=== PATIENT | female | born 1960 | race Caucasian/White ===

== ENCOUNTER 2019-02-11 09:00 | Outpatient (CLI) | payer MEDICARE ==
--- NOTE | 2019-02-11 19:23 | XRAY Report ---
Reason: ARTHRITIS BILATERAL HANDS Procedure Date: 02/11/2019 Accession Number: [id number] / [id number] Procedure: WCP - Hand 2 View BILAT CPT Code: FULL RESULT: EXAMS: 1. RIGHT HAND RADIOGRAPHY. 2. LEFT HAND RADIOGRAPHY. EXAM DATE: 02/11/2019 01:28 PM. CLINICAL HISTORY: Chronic bilateral hand pain. Right worse than left. COMPARISON: None. TECHNIQUE: 2 views each hand. FINDINGS: Right: Bones: Normal. No fractures or bone lesions. Joints: Mild triscaphe joint as well as 1st CMC joint degenerative joint disease. There is moderate 1st MCP joint degenerative joint disease. Soft Tissues: Chondrocalcinosis of the triangular fibrocartilage. No soft tissue swelling. Left: Bones: Normal. No fractures or bone lesions. Joints: Moderate triscaphe joint as well as mild to moderate 1st CMC degenerative joint disease. Mild PIP joint degenerative joint disease within the fingers. Mild to moderate 1st MCP degenerative joint disease. Mild 3rd finger DIP joint degenerative joint disease. Soft Tissues: Normal. No soft tissue swelling. IMPRESSION: 1. No acute bone abnormality. 2. No findings to indicate inflammatory arthropathy. 3. Right-sided triangular fibrocartilage chondrocalcinosis. RADIA
== END 2019-02-11 23:59 | disposition home or self-care (01) ==
LOC: DI.WCP 09:00 → EDSTATUS 13:38 → DI.WCP 23:59
PROVIDERS: ATTEND Family Medicine
DX: M19.041 Primary osteoarthritis, right hand (principal); M19.042 Primary osteoarthritis, left hand; M18.0 Bilateral primary osteoarthritis of first carpometacarpal joints; M11.241 Other chondrocalcinosis, right hand

== ENCOUNTER 2020-12-13 07:38 | Outpatient (CLI) | payer OTHER, MEDICARE ==
[2020-12-13 12:33] LABS: BASOPHILS # (AUTO) 0.1 10^3/uL (0.0-0.1); BASOPHILS % (AUTO) 1.3 %; EOSINOPHILS # (AUTO) 0.2 10^3/uL (0.0-0.7); EOSINOPHILS % (AUTO) 3.5 %; HCT - HEMATOCRIT 39.5 % (37.0-47.0); LYMPHOCYTES # (AUTO) 1.6 10^3/uL (1.5-3.5); LYMPHOCYTES % (AUTO) 34.7 %; MEAN CORPUSCULAR HEMOGLOBIN 27.6 pg (27.0-31.0); MEAN CORPUSCULAR HGB CONC 30.4 g/dL (32.0-36.0); MEAN CORPUSCULAR VOLUME 90.8 fL (81.0-99.0); MEAN PLATELET VOLUME 11.7 fL (7.9-10.8); MONOCYTES # (AUTO) 0.5 10^3/uL (0.0-1.0); MONOCYTES % (AUTO) 10.8 %; NEUTROPHILS # (AUTO) 2.3 10^3/uL (1.5-6.6); NEUTROPHILS % (AUTO) 49.5 %; PLT - PLATELET COUNT 261 10^3/uL (130-450); RED BLOOD COUNT 4.35 10^6/uL (4.20-5.40); RED CELL DISTRIBUTION WIDTH 14.9 % (12.0-15.0); WHITE BLOOD COUNT 4.6 x10^3/uL (4.8-10.8)
[2020-12-13 12:47] LABS: ALBUMIN 4.2 g/dL (3.2-5.5); ALBUMIN/GLOBULIN RATIO 1.4 (1.0-2.2); BILIRUBIN,TOTAL 0.6 mg/dL (0.2-1.0); CALCIUM 8.8 mg/dL (8.5-10.3); CREATININE 0.4 mg/dL (0.4-1.0); POTASSIUM 3.9 mmol/L (3.5-5.0); TOTAL PROTEIN 7.3 g/dL (6.7-8.2)
== END 2020-12-13 07:39 | disposition home or self-care (01) ==
LOC: LAB.N 07:38
PROVIDERS: ATTEND Physician Assistant Medical
DX: R10.31 Right lower quadrant pain (principal)
CPT/HCPCS: 36415; 80053; 83690; 85025

== ENCOUNTER 2020-12-13 08:22 | Outpatient (CLI) | payer MEDICARE, OTHER | END 2020-12-13 23:59 | disposition home or self-care (01) | LOC: LAB.N 08:22 | PROVIDERS: ATTEND Emergency Medicine | DX: R10.31 Right lower quadrant pain (principal) | CPT/HCPCS: 87086 ==

== ENCOUNTER 2024-02-06 09:46 | Outpatient (CLI) | payer OTHER ==
--- NOTE | 2024-02-06 15:29 | XRAY Report ---
PROCEDURE: Hips w/Pelvis 2-3V BL INDICATIONS: HIP PAIN TECHNIQUE: 2 view(s) of the hip were acquired. COMPARISON: None. FINDINGS: Bones: Decreased mineralization. No acute osseous fracture. There is posterior lumbar fusion hardware and sacroiliac joint screws bilaterally. There is a fracture in the vertical lumbar rods at the L4-5 level bilaterally, above the L5 screw on the right and below the L5 screw on the left. [id number] ate degenerative changes in both femoral acetabular joints, left worse than right including marginal spur formation and subcortical cystic change. Soft tissues: No suspicious soft tissue calcifications or masses. 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 Lumbar hardware fractures as described. Reviewed by: Yeni Cuevas MD on 02/06/2024 3:28 PM PDT Approved by: Yeni Cuevas MD on 02/06/2024 3:28 PM PDT Station ID: [id number]
== END 2024-02-06 09:47 | disposition home or self-care (01) ==
LOC: DI 09:46
PROVIDERS: ATTEND Internal Medicine Cardiovascular Disease
DX: M16.0 Bilateral primary osteoarthritis of hip (principal); T84.216A Breakdown (mechanical) of internal fixation device of vertebrae, initial encounter